=== PATIENT | female | born 1995 | race African-American/Black ===

== ENCOUNTER 2017-01-17 10:38 | Emergency (ER) | payer OTHER ==
[2017-01-17 10:47] VITALS: BP 151/79; PULSE 93; TEMP 99.7; BMI 32.3
[2017-01-17] MEDS ORDERED: IBUPROFEN 600 MG TABLET (FP) PO ONE ×2 (11:48→12:01)
[2017-01-17] MEDS ORDERED: DEXAMETHASONE LIQUID 0.5 MG/5 ML 240 ML BULK BOTTLE PO ONE (11:49)
--- NOTE | 2017-01-17 11:52 | PDOC ---
History of Present Illness - General Chief Complaint: Sore Throat Stated Complaint: SORE THROAT Time Seen by Provider: 01/17/17 11:00 - History of Present Illness Initial Comments: 01/17/17 11:49 CHIEF COMPLAINT: sore throat HISTORY OF PRESENT ILLNESS: 21 yo F with no PMH presents to ED with sore throat since last night. Patient states she is having trouble swallowing but denies any difficult breathing or speaking. She states she used some "throat spray from [facility] and thelma tea" last night without relief and woke up this morning with worsening swelling of the throat. No recent travel or sick contacts. PAST MEDICAL HISTORY: Denies past medical history FAMILY HISTORY: Denies SOCIAL HISTORY: Denies tobacco, alcohol, illicit drug use. SURGICAL HISTORY: Denies ALLERGIES: No known drug allergies REVIEW OF SYSTEMS General/Constitutional: Denies fever or chills. Denies weakness, weight change. HEENT: Sore throat since yesterday. Denies change in vision. Denies ear pain or discharge. Cardiovascular: Denies chest pain or shortness of breath. Respiratory: Denies cough, wheezing, or hemoptysis. Gastrointestinal: Denies nausea, vomiting, diarrhea or constipation. Denies rectal bleeding. Genitourinary: Denies dysuria, frequency, or change in urination. Musculoskeletal: Denies joint or muscle swelling or pain. Denies neck or back pain. Skin and breasts: Denies rash or easy bruising. PHYSICAL EXAM General Appearance: Well-appearing, appropriately dressed. No apparent distress , no intoxication. HEENT: Tonsils 3+ with exudate b/l. EOMI, PERRLA, normal ENT inspection. No conjunctival pallor. No photophobia, scleral icterus. Neck: Supple. Trachea midline. No tenderness, rigidity, carotid bruit, stridor , lymphadenopathy, or thyromegaly. Respiratory/Chest: Lungs CTAB. Cardiovascular: RRR. S1, S2. Musculoskeletal/Extremities: Normal inspection. FROM of all extremities, normal capillary refill. Pelvis Stable. No CVA tenderness. No tenderness to extremities, pedal edema, swelling, erythema or deformity. Integumentary: Appropriate color, dry, warm. No cyanosis, erythema, jaundice or rash Neurologic: [employer] II-XII intact. Fully oriented, alert. Appropriate mood/affect. Motor strength 5/5. No appreciable EOM palsy, facial droop or sensory deficit. Past History - Past Medical History Allergies/Adverse Reactions: Allergies Allergy/AdvReac Type Severity Reaction Status Date / Time No Known Allergies Allergy Verified 01/17/17 10:44 Home Medications: Ambulatory Orders NK [No Known Home Medication] 01/17/17 Asthma: No Cancer: No Cardiac Disorders: No Diabetes: No HTN: Yes (preeclamptic 02/07/16) Seizures: No Thyroid Disease: No - Psycho/Social/Smoking Cessation Hx Anxiety: No Suicidal Ideation: No Smoking History: Never smoked Have you smoked in the past 12 months: No Information on smoking cessation initiated: No Hx Alcohol Use: No Drug/Substance Use Hx: No Substance Use Type: None Hx Substance Use Treatment: No *Physical Exam - Vital Signs Last Vital Signs Temp Pulse Resp BP Pulse Ox 99.7 F H 93 H 18 151/79 100 01/17/17 10:45 01/17/17 10:45 01/17/17 10:45 01/17/17 10:45 01/17/17 10:45 Medical Decision Making - Medical Decision Making 01/17/17 11:51 21 yo F with no PMH presents to ED with sore throat since last night. Clinical presentation consistent with strep pharyngitis. Given extent of swelling to tonsils b/l, will give decadron. Rapid strep/ culture sent Strep positive. Bicillin 1.2 mil units IM Advised patient to f/u with primary care doctor if symptoms persist and of signs and symptoms for return to ER. Patient verbalized understanding and agrees to plan. *DC/Admit/Observation/Transfer Diagnosis at time of Disposition: Strep pharyngitis - Discharge Dispostion Disposition: HOME Condition at time of disposition: Stable Admit: No - Patient Instructions Printed Discharge Instructions: DI for Strep Throat Additional Instructions: Please follow up with your primary care doctor if symptoms do not improve in 24 hours. If you experience any shortness of breath, difficulty breathing, speaking, or swallowing, or any new or worsening symptoms, please return to the ER immediately. - Post Discharge Activity Work/School Note: Back to Work
[2017-01-17] MEDS ORDERED: DEXAMETHASONE SOD PHOSPHATE 10 MG/1 ML VIAL ONE (12:01)
[2017-01-17] MEDS ORDERED: PENICILLIN G BENZATHINE 1,200,000 UNIT/2 ML PFS IM ONE (12:08)
[2017-01-17] MEDS ORDERED: PENICILLIN G BENZATHINE 2,400,000 UNIT/4 ML PFS ONE (12:18)
== END 2017-01-17 12:48 | disposition home or self-care (01) ==
LOC: JERFT 10:38
DX: J02.0 Streptococcal pharyngitis (principal); B95.0 Streptococcus, group A, as the cause of diseases classified elsewhere
CPT/HCPCS: 87070; 87430; 96372; 99281-25

== ENCOUNTER 2017-05-11 16:06 | Emergency (ER) | payer OTHER ==
[2017-05-11 16:16] VITALS: BP 130/77; PULSE 84; TEMP 98.9; BMI 32.5
--- NOTE | 2017-05-11 17:16 | PDOC ---
History of Present Illness - General Chief Complaint: Sore Throat Stated Complaint: SORE THROAT Time Seen by Provider: 05/11/17 16:20 History Source: Patient Exam Limitations: No Limitations - History of Present Illness Initial Comments: 05/11/17 17:12 Patient is a 21-year-old female, presents with throat pain that started this a.m. history of strep with same pain. Patient states she felt a lesion to right tonsil this morning. Patient denies any fever, mild dysphagia, no respiratory difficulty, denies any chest pain or shortness of breath. Afebrile, tolerating fluids. Past Medical History: Denies. Allergies: No known allergies Medications: None Family History: Non-contributory Social History: Denies smoking, alcohol use, or IVDU Review of Systems GENERAL/CONSTITUTIONAL: No fever or chills. No weakness. No weight change. HEAD, EYES, EARS, NOSE AND THROAT: No change in vision. No ear pain or discharge. Sore throat and mild dysphagia. CARDIOVASCULAR: No chest pain or shortness of breath. RESPIRATORY: No cough, wheezing, or hemoptysis. GASTROINTESTINAL: No nausea, vomiting, diarrhea or constipation. No rectal bleeding. GENITOURINARY: No dysuria, frequency, or change in urination. MUSCULOSKELETAL: No joint or muscle swelling or pain. No neck or back pain. SKIN : No rash or easy bruising. NEUROLOGIC: No headache, vertigo, loss of consciousness, or loss of sensation. PSYCHIATRIC: No depression or anxiety. ENDOCRINE: No increased thirst. No abnormal weight change. HEMATOLOGIC/LYMPHATIC: No anemia, easy bleeding, or history of blood clots. No lymphadenopathy ALLERGIC/IMMUNOLOGIC: No hives or skin allergy. No latex allergy. Physical Exam: GENERAL: The patient is awake, alert, and fully oriented, in no acute distress. EYES: Pupils equal, round and reactive to light, extraocular movements intact, sclera anicteric, conjunctiva clear. ENT: Ears normal, nares patent, oropharynx erythematous without exudates, there is no soft palate fullness, there is an abscess ulcer noted above right tonsil. Not umbilicated. No fluctuance. No edema. Moist mucous membranes. No uvula deviation. NECK: Normal range of motion, supple without lymphadenopathy, JVD, or masses. LUNGS: Breath sounds equal, clear to auscultation bilaterally. No wheezes, and no crackles. HEART: Regular rate and rhythm, normal S1 and S2 without murmur, rub or gallop. ABDOMEN: Soft, nontender, normoactive bowel sounds. No guarding, no rebound. No masses. No bruising or abrasions MUSCULOSKELETAL: Normal range of motion, no edema. No clubbing or cyanosis. No cords, erythema, or tenderness. No CVA Tenderness with fist. NEUROLOGICAL: Cranial nerves II through XII grossly intact. Normal speech, normal gait. SKIN: Warm, Dry, normal turgor, no rashes or lesions noted. Past History - Past Medical History Allergies/Adverse Reactions: Allergies Allergy/AdvReac Type Severity Reaction Status Date / Time No Known Allergies Allergy Verified 05/11/17 16:13 Home Medications: Ambulatory Orders Amoxicillin - [Amoxicillin 500mg Capsule -] 500 mg PO BID #20 capsule 05/11/17 Asthma: No Cancer: No Cardiac Disorders: No Diabetes: No HTN: Yes (preeclamptic 02/07/16) Seizures: No Thyroid Disease: No - Psycho/Social/Smoking Cessation Hx Anxiety: No Suicidal Ideation: No Smoking History: Never smoked Have you smoked in the past 12 months: No Information on smoking cessation initiated: No Hx Alcohol Use: No Drug/Substance Use Hx: No Substance Use Type: None Hx Substance Use Treatment: No *Physical Exam - Vital Signs Last Vital Signs Temp Pulse Resp BP Pulse Ox 98.9 F 84 18 130/77 98 05/11/17 16:13 05/11/17 16:13 05/11/17 16:13 05/11/17 16:13 05/11/17 16:13 Medical Decision Making - Medical Decision Making 05/11/17 17:16 A/P: Patient here for evaluation of sore throat, aphthous ulcer above right tonsil. Most likely viral in nature however will send rapid strep there is no clinical evidence of peritonsillar abscess, no uvula deviation, no soft palate fullness. 05/11/17 19:12 Pt with positive strep pharyngitis. We'll DC patient home on amoxicillin, warm salt water gargles, follow-up with ENT I discussed the physical exam findings, ancillary test results and final diagnoses with the patient. I answered all of the patient's questions. The patient was satisfied with the care received and felt comfortable with the discharge plan and treatment plan. The patient will call to arrange follow-up and will return to the Emergency Department with any new, persistent or worsening symptoms. *DC/Admit/Observation/Transfer Diagnosis at time of Disposition: Strep pharyngitis - Discharge Dispostion Disposition: HOME Condition at time of disposition: Good Admit: No - Prescriptions Prescriptions: Amoxicillin - [Amoxicillin 500mg Capsule -] 500 mg PO BID #20 capsule - Referrals Referrals: Willian Melo MD [Staff Physician] - - Patient Instructions Printed Discharge Instructions: DI for Strep Throat Additional Instructions: 1. Increase fluid. 2. Pedialyte or Gatorade. 3. Please change toothbrush within 3 days of starting antibiotics. 4. Warm saltwater gargles. 5. Please follow up with PMD in 3 days if symptoms not resolving. 6. Please return to the ER unable to drink or eat, increased fever or other concerns - Post Discharge Activity Work/School Note: Back to Work
== END 2017-05-11 19:19 | disposition home or self-care (01) ==
LOC: JERFT 16:06
DX: J02.0 Streptococcal pharyngitis (principal); B95.0 Streptococcus, group A, as the cause of diseases classified elsewhere
CPT/HCPCS: 87070; 87430; 99281-25

== ENCOUNTER 2018-10-08 16:14 | Emergency (ER) | payer OTHER ==
[2018-10-08 16:31] VITALS: BP 118/65; PULSE 63; TEMP 98.6; BMI 24.2
--- NOTE | 2018-10-08 16:40 | PDOC ---
Attending Attestation - HPI HPI: 10/08/18 17:26 The patient is a 23 year old female with a past medical history of PCOS and diabetes here today for evaluation of shortness of breath and loss of appetite. Patient reports that her shortness of breath is worse when trying to stand up and notes associated heart palpitations. The patient reports that she went to [facility] 3 days ago for the same symptoms and was told that everything was normal. Patient denies headache, lightheadedness. Denies fever, chills. Denies chest pain. Denies nausea, vomiting, diarrhea, abdominal pain. Denies lower extremity edema. Allergies: NKA PCP: none - Physicial Exam PE: 10/08/18 17:26 Constitutional: Awake, alert, oriented. No acute distress. Head: Normocephalic. Atraumatic Eyes: PERRL. EOMI. Conjunctivae are not pale. ENT: Mucous membranes are moist and intact. Posterior pharynx without exudates or erythema. Uvula midline. Neck: Supple. Full ROM. No lymphadenopathy. Cardiovascular: Regular rate. Regular rhythm. S1, S2 regular. Distal pulses are 2+ and symmetric. Pulmonary/Chest: No evidence of respiratory distress. Clear to auscultation bilaterally No wheezing, rales or rhonchi. Abdominal: Soft and non-distended. There is no tenderness. No rebound, guarding or rigidity. No organomegaly. No palpable masses. Good bowel sounds. Back: No CVA tenderness. Musculoskeletal: No edema. No cyanosis. No clubbing. Full range of motion in all extremities. No calf tenderness. Radial/pedal pulses are intact and 2+ bilaterally Skin: Skin is warm and dry. No petechiae. No purpura. Neurological: Alert and oriented to person, place, and time. Cranial nerves II -XII are grossly intact. Normal speech. Strength is grossly symmetric. No sensory deficits. Psychiatric: Good eye contact. Normal interaction, affect and behavior. - Medical Decision Making 10/08/18 17:26 Documentation prepared by HAYDEE Newman, acting as medical technicians for Shobha Lewis DO. <Evaristo Jones - Last Filed: 10/08/18 17:26> - Resident Resident Name: Janeth Irving - ED Attending Attestation I have performed the following: I have examined & evaluated the patient, The case was reviewed & discussed with the resident, I agree w/resident's findings & plan, Exceptions are as noted - Medical Decision Making 10/08/18 16:40 I, Dr. Shobha Lewis, DO, attest that this document has been prepared under my direction and personally reviewed by me in its entirety. I further attest, that it accurately reflects all work, treatment, procedures and medical decision -making performed by me. 10/08/18 17:23 a/p: 23yo female c/o palpitations and sob -no cp -no pleuritic component to sob -no fevers/sore throat -no cough -seen at [facility] 3 days ago and was given meds for her anxiety as the cause of her sob -denies anxiety today -pt is nontoxic in appearance -will send labs, hx of predm and states urinating freq -will obtain xray -will monitor and reassess 10/08/18 18:18 labs reviewed dimer negative 10/08/18 18:18 tsh normal 10/08/18 18:36 cxr clear 10/08/18 18:39 pt stable for dc to home <Shobha Lewis - Last Filed: 10/08/18 18:39> Heart Score/ECG Review - ECG Intrepretation Comment:: 10/08/18 17:24 sinus at 62, nl axis, nl interal, t wave inversions V1-2, no acute st changes <Shobha Lewis - Last Filed: 10/08/18 18:39>
--- NOTE | 2018-10-08 16:56 | PDOC ---
History of Present Illness - General Chief Complaint: Shortness of Breath Stated Complaint: SHORTNESS OF BREATH,FATIGUE Time Seen by Provider: 10/08/18 16:34 History Source: Patient Exam Limitations: No Limitations - History of Present Illness Initial Comments: 10/08/18 16:51 23 year old with hx of PCOS who presents with 2 days of shortness of breath on exertion, fatigue and palpitations when standing up. She reports some rib pain with deep breaths. She was evaluated at [facility] two days ago without significant findings but has continued to have similar symptoms. The patient denies taking control pills, any recent travel, long flights, long car rides. Denies abdominal pain, nausea, vomiting, diarrhea, constipation, dysuria , hematuria. She denies recent illness, fever, cough, runny nose congestion. She has no other complaints at bedside. Past History - Past Medical History Allergies/Adverse Reactions: Allergies Allergy/AdvReac Type Severity Reaction Status Date / Time No Known Allergies Allergy Verified 10/08/18 16:27 Home Medications: Ambulatory Orders Amoxicillin - [Amoxicillin 500mg Capsule -] 500 mg PO BID #20 capsule 07/18/17 Asthma: No Cancer: No Cardiac Disorders: No COPD: No Diabetes: No HTN: Yes (preeclamptic 02/07/16) Seizures: No Thyroid Disease: No - Immunization History Immunization Up to Date: Yes - Suicide/Smoking/Psychosocial Hx Smoking History: Never smoked Have you smoked in the past 12 months: No Hx Alcohol Use: No Drug/Substance Use Hx: No Substance Use Type: None Hx Substance Use Treatment: No Review of Systems - Review of Systems Able to Perform ROS?: Yes Is the patient limited Occitan proficient: No Constitutional: No: Chills, Diaphoresis, Fever HEENTM: No: Blurred Vision, Tinnitus Respiratory: Yes: Shortness of Breath. No: Cough, Orthopnea Cardiac (ROS): Yes: Palpitations. No: Chest Pain, Lightheadedness ABD/GI: No: Constipated, Diarrhea, Nausea, Vomiting : No: Burning, Dysuria, Hematuria Musculoskeletal: No: Muscle Pain, Muscle Weakness Neurological: No: Headache, Numbness, Tingling *Physical Exam - Vital Signs Last Vital Signs Temp Pulse Resp BP Pulse Ox 98.6 F 63 16 118/65 100 10/08/18 16:27 10/08/18 16:27 10/08/18 16:27 10/08/18 16:27 10/08/18 16:27 - Physical Exam Comments: 10/08/18 17:21 GENERAL: Awake, alert, and fully oriented, in no acute distress HEAD: No signs of trauma, normocephalic, atraumatic EYES: EOMI, sclera anicteric, conjunctiva clear ENT: oropharynx clear without exudates. Moist mucosa NECK: Normal ROM, supple LUNGS: No distress, speaks full sentences, clear to auscultation bilaterally HEART: Regular rate and rhythm, normal S1 and S2, no murmurs, rubs or gallops, peripheral pulses normal and equal bilaterally. ABDOMEN: Soft, nontender, normoactive bowel sounds. No guarding, no rebound. No masses EXTREMITIES : Normal inspection, Normal range of motion, no edema. No clubbing or cyanosis. NEUROLOGICAL: Cranial nerves II through XII grossly intact. Normal speech, no focal sensorimotor deficits SKIN: Warm, Dry, normal turgor, no rashes or lesions noted Moderate Sedation - Procedure Monitoring Vital Signs: Procedure Monitoring Vital Signs Temperature 98.6 F 10/08/18 16:27 Pulse Rate 63 10/08/18 16:27 Respiratory Rate 16 10/08/18 16:27 Blood Pressure 118/65 10/08/18 16:27 O2 Sat by Pulse Oximetry (%) 100 10/08/18 16:27 ED Treatment Course - LABORATORY CBC & Chemistry Diagram: 10/08/18 17:05 10/08/18 17:05 Medical Decision Making - Medical Decision Making 10/08/18 17:18 23 year old with hx of PCOS who presents with 2 days of shortness of breath on exertion, fatigue and palpitations when standing up. She reports some rib pain with deep breaths. She was evaluated at [facility] two days ago without significant findings but has continued to have similar symptoms. ED Course: consider arrythmia vs hyperthyroidism vs electrolyte derangement vs preg less likely PE, however possible and will order d-dimer cbc,cmp, ekg, tsh, ddimer, ua, upreg 10/08/18 18:04 labwork unremarkable. *DC/Admit/Observation/Transfer Diagnosis at time of Disposition: Exertional dyspnea - Discharge Dispostion Disposition: HOME Condition at time of disposition: Stable Decision to Admit order: No - Referrals - Patient Instructions Printed Discharge Instructions: DI for Shortness of Breath Additional Instructions: You were seen in the ED for complaints of shortness of breath on exertion. In the ED you were evaluated with labwork and imaging. Your results were unremarkable. There does not appear to be an acute need for immediate hospitalization. You are advised to follow up with your Primary Care Physician within 1 week. Return to the ED immediately if you experience worsening shortness of breath, chest pain, lightheadedness, loss of consciousness, nausea, vomiting, or diarrhea. - Post Discharge Activity
[2018-10-08 17:13] LABS: BASO % 1.9 % (0-2.0); EOS % 3.2 % (0-4.5); HEMATOCRIT 37.4 % (32.4-45.2); HEMOGLOBIN 11.9 GM/dL (10.7-15.3); LYMPH % 31.4 % (8-40); MCH 23.9 pg (25.7-33.7); MCHC 31.9 g/dl (32.0-36.0); MEAN CELL VOLUME 74.7 fl (80-96); MEAN PLT VOLUME 9.9 fl (7.5-11.1); MONO % 8.1 % (3.8-10.2); NEUT % 55.4 % (42.8-82.8); PLATELET COUNT 255 K/MM3 (134-434); RDW 16.8 % (11.6-15.6)
[2018-10-08 17:23] LABS: URINE APPEARANCE SLCLOUDY; URINE BILIRUBIN NEGATIVE (<2.0 mg/dL); URINE COLOR YELLOW; URINE GLUCOSE (UA) NEGATIVE (NEGATIVE); URINE KETONE NEGATIVE (NEGATIVE); URINE LEUK ESTERASE NEGATIVE (NEGATIVE); URINE NITRITE NEGATIVE (NEGATIVE); URINE PROTEIN NEGATIVE (NEGATIVE); URINE UROBILINOGEN NEGATIVE mg/dL (0.2-1.0)
[2018-10-08 17:25] LABS: HCG,QUALITATIVE URINE Negative
[2018-10-08 17:59] LABS: ALBUMIN 3.9 g/dl (3.4-5.0); ALK PHOS 82 U/L (45-117); ANION GAP 6 MMOL/L (8-16); BILIRUBIN,TOTAL 0.3 mg/dL (0.2-1); BLOOD UREA NITROGEN 11 mg/dL (7-18); CHLORIDE 104 mmol/L (98-107); CO2 29 mmol/L (21-32); CREATININE 0.9 mg/dL (0.55-1.3); GLUCOSE,RANDOM 86 mg/dL (74-106); POTASSIUM 3.8 mmol/L (3.5-5.1); SGOT/AST 16 U/L (15-37); SGPT/ALT 22 U/L (13-61); SODIUM 138 mmol/L (136-145); TOT PROT 7.7 g/dl (6.4-8.2)
--- NOTE | 2018-10-09 19:07 | EKG ---
Test Reason : Blood Pressure : / mmHG Vent. Rate : 062 BPM Atrial Rate : 062 BPM P-R Int : 164 ms QRS Dur : 090 ms QT Int : 408 ms P-R-T Axes : 027 049 030 degrees QTc Int : 414 ms NORMAL SINUS RHYTHM WITH SINUS ARRHYTHMIA CANNOT RULE OUT ANTERIOR INFARCT , AGE UNDETERMINED ABNORMAL ECG WHEN COMPARED WITH ECG OF 23-APR-2016 15:23, NO SIGNIFICANT CHANGE WAS FOUND Confirmed by ASHISH SIGALA MD ([id number]) on 10/09/2018 7:06:52 PM Referred By: Confirmed By:ASHISH SIGALA MD
== END 2018-10-08 18:47 | disposition home or self-care (01) ==
LOC: JER 16:14
DX: R06.89 Other abnormalities of breathing (principal); F41.9 Anxiety disorder, unspecified
CPT/HCPCS: 36415; 71046-TC-FY; 80053; 81003; 84443; 84703; 85025; 85379; 87086; 93005; 93010; 99283-25

== ENCOUNTER 2019-07-10 16:20 | Inpatient (IN) | payer OTHER ==
[2019-07-10 18:27] LABS: BASO % 0.2 % (0-2.0); EOS % 0.9 % (0-4.5); LYMPH % 14.5 % (8-40); MCH 25.3 pg (25.7-33.7); MCHC 31.7 g/dl (32.0-36.0); MEAN CELL VOLUME 79.8 fl (80-96); MEAN PLT VOLUME 10.3 fl (7.5-11.1); MONO % 12.3 % (3.8-10.2); NEUT % 72.1 % (42.8-82.8); PLATELET COUNT 150 K/MM3 (134-434); RBC 5.14 M/mm3 (3.60-5.2); RDW 15.2 % (11.6-15.6); WHITE BLOOD COUNT 10.7 K/mm3 (4.0-10.0)
[2019-07-10 18:36] LABS: PROTHROMBIN TIME (PATIENT) 11.8 SEC (9.7-13.0)
[2019-07-10 18:40] VITALS: BMI 39.5
[2019-07-10 18:53] LABS: BLOOD UREA NITROGEN 8.7 mg/dL (7-18); CALCIUM 9.1 mg/dL (8.5-10.1); CREATININE 0.8 mg/dL (0.55-1.3)
--- NOTE | 2019-07-10 19:24 | HP ---
Past Medical History - Primary Care Physician PCP:: Mallory Zelaya - Admission Chief Complaint: Previous Section. Twins Di/Di at 36.1 week. Gestational DM A2 History of Present Illness: 23 yo EDC 08/06/19 EGA 36.1 weeks twins with gestational DM A2 uncontrolled who came in for delivery as per MFM No BHATIA, abd pain, rom or bleeding Limitations to Obtaining History: No Limitations - Past Medical History ...: 3 ...Para: 1 ...Term: 1 ...: 0 ...Spon : 0 ...Induced : 1 ...Multiple Gestation: 0 ...LMP: 10/30/18 ... Weeks Gestation by Dates: 36.1 ...EDC by Dates: 08/06/19 - Past Surgical History Past Surgical History: Yes: Hx Myomectomy: No Hx Transabdominal Cerclage: No - Smoking History Smoking history: Never smoked Have you smoked in the past 12 months: No - Alcohol/Substance Use Hx Alcohol Use: No History of Substance Use: reports: None - Social History Do you think of yourself as: Straight/Heterosexual History of Recent Travel: No Home Medications - Allergies Allergies/Adverse Reactions: Allergies Allergy/AdvReac Type Severity Reaction Status Date / Time No Known Allergies Allergy Verified 07/10/19 18:45 - Home Medications Home Medications: Ambulatory Orders Aspirin [Lo-Dose Aspirin EC] 81 mg PO DAILY 06/29/19 Vits96/Iron Fum/Folic [ Tablet] 1 each PO DAILY 06/29/19 Insulin NPH [Novolin N Vial -] 22 units SQ AM 07/10/19 Review of Systems - Review of Systems Constitutional: reports: No Symptoms Eyes: reports: No Symptoms HENT: reports: No Symptoms Neck: reports: No Symptoms Cardiovascular: reports: No Symptoms Respiratory: reports: No Symptoms Gastrointestinal: reports: No Symptoms Genitourinary: reports: No Symptoms Breasts: reports: No Symptoms Reported Musculoskeletal: reports: No Symptoms Integumentary: reports: No Symptoms Neurological: reports: No Symptoms Endocrine: reports: No Symptoms Hematology/Lymphatic: reports: No Symptoms Psychiatric: reports: No Symptoms Physical Exam - Maternity Vital Signs: Vital Signs Temperature 99.2 F 07/10/19 17:00 Pulse Rate 112 H 07/10/19 17:00 Respiratory Rate 20 07/10/19 17:00 Blood Pressure 134/81 07/10/19 17:00 O2 Sat by Pulse Oximetry (%) - Labs Lab Results: CBC, BMP 07/10/19 18:00 07/10/19 18:00 Hemorrhage Risk Assessment - Risk Factors Medium Risk Factors: Yes: Multiple gestation Risk Score: 1 Risk Level: Medium Risk Problem List - Problems (1) Twin gestation with third Code(s): O30.009 - TWIN , UNSP NUM PLCNTA & AMNIO SACS, UNSP TRIMESTER (2) Gestational diabetes requiring insulin Code(s): O24.414 - GESTATIONAL DIABETES IN , INSULIN CONTROLLED (3) 36 weeks gestation of Code(s): Z3A.36 - 36 WEEKS GESTATION OF Assessment/Plan Twin gestational di/di iup at 36.1 week gestational diabetes - insulin uncontrolled Cat 1 GBS Plan Section
[2019-07-10] MEDS ORDERED: CITRIC ACID/SODIUM CITRATE 30 ML UNIT-DOSE CUP PO ONE (19:26)
[2019-07-10] MEDS ORDERED: WITCH HAZEL 50% (TUCKS) 40 PAD/JAR PAD TP PRN (19:27)
[2019-07-10] MEDS ORDERED: BENZOCAINE 20% 57 GM BOTTLE TP PRN (19:27)
[2019-07-10] MEDS ORDERED: BENZOCAINE 28 GM HEMORRHOIDAL OINTMENT PR PRN (19:27)
[2019-07-10] MEDS ORDERED: METHYLERGONOVINE MALEATE 0.2 MG/1 ML AMP IM PRN (19:27)
[2019-07-10] MEDS ORDERED: diphenhydrAMINE HCL 25 MG CAPSULE (FP) PO PRN (19:27)
[2019-07-10] MEDS ORDERED: ELECTROLYTE-148 SOLN 1,000 ML IV SCH (19:30)
[2019-07-10] MEDS ORDERED: morphine SULFATE/PF 0.5 MG/ML (2cc Syringe - QUVA) ONE (19:54)
[2019-07-10] MEDS ORDERED: KETOROLAC TROMETHAMINE 30 MG/1 ML VIAL ONE (20:14)
[2019-07-10] MEDS ORDERED: OXYTOCIN 10 UNITS/ML VIAL ONE (20:14)
[2019-07-10] MEDS ORDERED: ceFAZolin SODIUM 1 GM VIAL ONE (20:14)
--- NOTE | 2019-07-10 21:03 | OP ---
Operative Note - Note: Operative Date: 07/10/19 Pre-Operative Diagnosis: Twin gestation. Previous section. IUP at 36 weeks. Gestational Diabetes uncontrolled Operation: Repeat Section Findings: Live female Twin A OP nuchal cord x 1 live male infant Twin B OP Post-Operative Diagnosis: Same as Pre-op Surgeon: Mallory Zelaya Clipper Machine: Reza Beck Anesthesia: Spinal Estimated Blood Loss (mls): 700 Operative Report Dictated: Yes
--- NOTE | 2019-07-10 21:30 | OP ---
DATE OF OPERATION: 07/10/2019 PREOPERATIVE DIAGNOSES: Twin gestation, previous section, intrauterine at 36 weeks, and gestational diabetes, uncontrolled. OPERATION: Repeat section. POSTOPERATIVE DIAGNOSES: Twin gestation, previous section, intrauterine at 36 weeks, and gestational diabetes, uncontrolled. Live female infant Twin A, occiput posterior position, nuchal cord x1 reduced. Twin B is a live male infant, occiput posterior position. SURGEON: Mallory Zelaya MD MACHINE WOODWORKING SANDER: VIELKA Garner ANESTHESIA: Spinal. ANESTHESIOLOGIST: Kali Nguyễn MD ESTIMATED BLOOD LOSS: 700 mL. PROCEDURE: Patient was taken to the operating room, placed in supine position, prepped and draped in usual sterile fashion. A timeout was performed in accordance with hospital regulations. Pfannenstiel skin incision was made with a scalpel. Cautery was then used to go through layers of abdominal wall to the level of the fascia. Fascia was cut in the midline. Cautery was then used to open the fascia in smiling fashion. Kaushal was then used to bluntly and sharply dissect the rectus muscle off the fascia. Muscle split in the midline. Peritoneal cavity was then entered and carried upward and downward. Bladder retractor was then placed. Vesicouterine reflection was then entered. Bladder was bluntly dissected out of the operative field. Scalpel was then used to make a low transverse uterine incision. Incision was carried upwards using bandage scissors. A live female infant, Twin A, was delivered in OP position. Nose and mouth suction performed. Shoulders were delivered without difficulty. Cord was clamped and cut. Infant was handed to perinatal social worker. Cord pH obtained. Twin B was also delivered in OP position. Shoulders were delivered without difficulty. Cord was clamped and cut, and the live male was handed to perinatal social worker. Cord pH was also done. Cord blood was obtained. Placentas were manually extracted from the uterus and submitted to pathology. Uterus exteriorized and cleaned with clean laparotomy pads. Uterine incision then closed using 0 Biosyn suture, first layer continuous and locking, second layer imbricating the first layer. Hemostasis was achieved. Uterus interiorized. Tubes and ovaries were noted to be normal. Hemostasis was achieved. Abdominal sweep done. Peritoneal cavity was then closed using 0 Biosyn suture. Muscles approximated in the midline using 0 Biosyn suture. Fascia was then closed using 0 Vicryl suture in 2 parts. Skin was then closed using 3-0 Vicryl in subcuticular fashion. Wound was washed and dressed. Patient had tolerated the procedure well and was taken to recovery room in stable condition. Lauri OATES/[id number]
[2019-07-10] MEDS ORDERED: morphine SULFATE/PF 0.5 MG/ML (2cc Syringe - QUVA) SPIN ONE (21:52)
[2019-07-10] MEDS ORDERED: ONDANSETRON 4 MG/2 ML VIAL IVPUSH PRN ×2 (21:52)
[2019-07-10] MEDS ORDERED: ACETAMINOPHEN 1000 MG/100 ML VIAL (NON FORMULARY) IVPB ONE (21:55)
[2019-07-10] MEDS: OXYTOCIN 20 UNITS in 0.9% NS 20 UNIT/1,000 ML INFUS.BAG IV SCH (22:00)
[2019-07-10] MEDS ORDERED: OXYTOCIN 20 UNITS in 0.9% NS 20 UNIT/1,000 ML INFUS.BAG IV ONE (22:25)
[2019-07-10] MEDS ORDERED: ACETAMINOPHEN INJECTION 100 ML IVPB ONE (22:41)
[2019-07-11] MEDS: IBUPROFEN 800 MG/8 ML IJ IVPB PRN ×2 (03:16→11:26)
[2019-07-11] MEDS: OXYTOCIN 20 UNITS in 0.9% NS 20 UNIT/1,000 ML INFUS.BAG IV SCH ×2 (05:55→15:05)
[2019-07-11 10:28] LABS: MCH 25.6 pg (25.7-33.7); MCHC 32.5 g/dl (32.0-36.0); MEAN CELL VOLUME 78.6 fl (80-96); MEAN PLT VOLUME 10.4 fl (7.5-11.1); PLATELET COUNT 138 K/MM3 (134-434); RBC 4.71 M/mm3 (3.60-5.2); RDW 15.3 % (11.6-15.6); WHITE BLOOD COUNT 11.1 K/mm3 (4.0-10.0)
--- NOTE | 2019-07-11 10:43 | PN ---
Post Progress Note - Subjective Subjective: 23 yo Para 2 status post twin delivery by , seen and evaluated. Doing well. Post Day: 1 Type of Delivery: Repeat C/S Vital Signs: Vital Signs Temperature 98.0 F 07/11/19 06:00 Pulse Rate 78 07/11/19 06:00 Respiratory Rate 18 07/11/19 08:00 Blood Pressure 107/70 07/11/19 06:00 O2 Sat by Pulse Oximetry (%) 100 07/10/19 22:15 Breast Exam: Yes: Soft Uterus: Yes: Fundus @ umbilicus Incision: Yes: Dressing dry and intact Abdomen/GI: Yes: Abdomen soft, Tolerating PO Lochia: Yes: Rubra Lochia, amount: Small Extremities: Yes: Calves non-tender Perineum: Yes: Intact Activity: Other (She's lying in bed) - Labs Labs: CBC WBC 11.1 K/mm3 (4.0-10.0) H 07/11/19 09:59 RBC 4.71 M/mm3 (3.60-5.2) 07/11/19 09:59 Hgb 12.0 GM/dL (10.7-15.3) 07/11/19 09:59 Hct 37.0 % (32.4-45.2) 07/11/19 09:59 MCV 78.6 fl (80-96) L 07/11/19 09:59 MCH 25.6 pg (25.7-33.7) L 07/11/19 09:59 MCHC 32.5 g/dl (32.0-36.0) 07/11/19 09:59 RDW 15.3 % (11.6-15.6) 07/11/19 09:59 Plt Count 138 K/MM3 (134-434) 07/11/19 09:59 MPV 10.4 fl (7.5-11.1) 07/11/19 09:59 Absolute Neuts (auto) 7.7 K/mm3 (1.5-8.0) 07/10/19 18:00 Neutrophils % 72.1 % (42.8-82.8) D 07/10/19 18:00 Lymphocytes % 14.5 % (8-40) D 07/10/19 18:00 Monocytes % 12.3 % (3.8-10.2) H 07/10/19 18:00 Eosinophils % 0.9 % (0-4.5) 07/10/19 18:00 Basophils % 0.2 % (0-2.0) 07/10/19 18:00 Nucleated RBC % 0 % (0-0) 07/10/19 18:00 Problem List - Problems (1) Status post repeat low transverse section Problems reviewed: Yes Code(s): Z98.891 - HISTORY OF UTERINE SCAR FROM PREVIOUS SURGERY Assessment/Plan Status post delivery of twins Ambulation Analgesia as needed Regular diet D/C mccrary catheter this pm Continue post op care
--- NOTE | 2019-07-11 10:52 | PN ---
Progress Note (short form) - Note Progress Note: Anesthesia POD#1 S/P under Spinal Anesthesia and DM VSS,no N/V,bearable pain,legs are strong. Magdalena Gutierrez MD.
[2019-07-11] MEDS: ACETAMINOPHEN 325 MG TABLET (FP) PO PRN (15:30)
[2019-07-11] MEDS: IBUPROFEN 600 MG TABLET (FP) PO PRN (18:08)
[2019-07-11] MEDS: SIMETHICONE 80 MG TAB.CHEW (FP) PO PRN (18:12)
[2019-07-11] MEDS ORDERED: oxyCODONE HCL 5 MG TABLET PO PRN (19:27)
[2019-07-11] MEDS ORDERED: BISACODYL 10 MG SUPP.RECT PR PRN (19:27)
[2019-07-11] MEDS ORDERED: HYDROmorphone HCL 2 MG TABLET ONE (20:39)
--- NOTE | 2019-07-12 00:13 | CONSULT ---
Consult Consult Specialty:: Endocrine Referred by:: dr.suzanne hawley Reason for Consultation:: gestational dm - History of Present Illness Chief Complaint: has borderline blood sugars History of Present Illness: 23 y old female,sp twins with gestational DM A2 uncontrolled who came in for delivery had elevated bgms fasting in past poor compliant with diet and diabetic follow up.she denies blurred vision,nausea or vomiting. - Past Surgical History Past Surgical History: Yes: - Alcohol/Substance Use Hx Alcohol Use: No History of Substance Use: reports: None - Smoking History Smoking history: Never smoked Have you smoked in the past 12 months: No - Social History History of Recent Travel: No Home Medications - Allergies Allergies/Adverse Reactions: Allergies Allergy/AdvReac Type Severity Reaction Status Date / Time No Known Allergies Allergy Verified 07/10/19 18:45 - Home Medications Home Medications: Ambulatory Orders Aspirin [Lo-Dose Aspirin EC] 81 mg PO DAILY 06/29/19 Vits96/Iron Fum/Folic [ Tablet] 1 each PO DAILY 06/29/19 Insulin NPH [Novolin N Vial -] 22 units SQ AM 07/10/19 Review of Systems - Review of Systems Constitutional: reports: No Symptoms Eyes: reports: No Symptoms HENT: reports: No Symptoms Neck: reports: No Symptoms Cardiovascular: reports: No Symptoms Respiratory: reports: No Symptoms Gastrointestinal: reports: No Symptoms Genitourinary: reports: No Symptoms Musculoskeletal: reports: Muscle Cramps Neurological: reports: No Symptoms Physical Exam Vital Signs: Vital Signs Temperature 98.8 F 07/11/19 22:00 Pulse Rate 104 H 07/11/19 22:00 Respiratory Rate 18 07/11/19 22:00 Blood Pressure 112/72 07/11/19 22:00 O2 Sat by Pulse Oximetry (%) 100 07/10/19 22:15 Constitutional: Yes: Calm Eyes: Yes: EOM Intact HENT: Yes: Normocephalic Neck: Yes: Trachea Midline Cardiovascular: Yes: Regular Rate and Rhythm Respiratory: Yes: CTA Bilaterally Gastrointestinal: Yes: Normal Bowel Sounds ...Rectal Exam: Yes: Deferred Musculoskeletal: Yes: WNL Extremities: Yes: WNL Neurological: Yes: Alert, Oriented Labs: CBC, BMP 07/11/19 09:59 07/10/19 18:00 Problem List - Problems (1) Gestational diabetes requiring insulin Problems reviewed: Yes Code(s): O24.414 - GESTATIONAL DIABETES IN , INSULIN CONTROLLED (2) Status post repeat low transverse section Problems reviewed: Yes Code(s): Z98.891 - HISTORY OF UTERINE SCAR FROM PREVIOUS SURGERY (3) Anemia-delivered w/ complication Problems reviewed: Yes Code(s): O99.03 - ANEMIA COMPLICATING THE PUERPERIUM Assessment/Plan Current Active Problems 36 weeks gestation of (Acute) Gestational diabetes requiring insulin (Acute) Status post repeat low transverse section (Acute) Twin gestation with third (Acute) Abnormal Lab Results 07/11/19 09:59 WBC 11.1 H MCV 78.6 L MCH 25.6 L Laboratory Results - last 24 hr 07/10/19 07/11/19 07/11/19 18:00 05:45 09:59 WBC 11.1 H RBC 4.71 Hgb 12.0 Hct 37.0 MCV 78.6 L MCH 25.6 L MCHC 32.5 RDW 15.3 Plt Count 138 MPV 10.4 POC Glucometer 107 Fasting Glucose RPR Titer Nonreactive 07/11/19 07/11/19 07/11/19 09:59 11:07 15:39 WBC RBC Hgb Hct MCV MCH MCHC RDW Plt Count MPV POC Glucometer 98 78 Fasting Glucose 100 RPR Titer 07/11/19 21:27 WBC RBC Hgb Hct MCV MCH MCHC RDW Plt Count MPV POC Glucometer 81 Fasting Glucose RPR Titer plan bgm acmeal ck hba1c diet to resume will need bgm monitoring follow up with hba1c and nutrition consult
[2019-07-12] MEDS: SIMETHICONE 80 MG TAB.CHEW (FP) PO PRN ×5 (02:49→21:29)
[2019-07-12] MEDS: oxyCODONE HCL 5 MG TABLET PO PRN ×4 (02:49→21:32)
[2019-07-12] MEDS: IBUPROFEN 600 MG TABLET (FP) PO PRN ×3 (02:50→21:29)
[2019-07-12] MEDS: INSULIN SLIDING SCALE (NOVOLOG) 1 VIAL SQ SCH ×3 (06:50→17:14)
[2019-07-12] MEDS ORDERED: INSULIN SLIDING SCALE (NOVOLOG) 1 VIAL SQ SCH (07:00)
--- NOTE | 2019-07-12 07:06 | PN ---
Post Note - Post Date of Delivery: 07/10/19 Post Day: 2 Vital Signs: Vital Signs - 24 hr 07/11/19 07/11/19 07/11/19 08:00 09:00 10:00 Temperature 98.2 F Pulse Rate 81 Respiratory 18 18 18 Rate Blood Pressure 123/72 07/11/19 07/11/19 07/11/19 11:00 12:00 13:00 Temperature Pulse Rate Respiratory 18 18 18 Rate Blood Pressure 07/11/19 07/11/19 07/11/19 14:00 15:00 16:00 Temperature 98.3 F Pulse Rate 84 Respiratory 18 18 18 Rate Blood Pressure 111/70 07/11/19 07/11/19 07/11/19 17:00 18:00 19:00 Temperature 98.5 F Pulse Rate 100 H Respiratory 18 18 18 Rate Blood Pressure 108/61 07/11/19 07/11/19 20:00 22:00 Temperature 98.8 F Pulse Rate 104 H Respiratory 18 18 Rate Blood Pressure 112/72 Labs: Laboratory Results - last 24 hr 07/10/19 07/11/19 07/11/19 18:00 09:59 09:59 WBC 11.1 H RBC 4.71 Hgb 12.0 Hct 37.0 MCV 78.6 L MCH 25.6 L MCHC 32.5 RDW 15.3 Plt Count 138 MPV 10.4 POC Glucometer Fasting Glucose 100 RPR Titer Nonreactive 07/11/19 07/11/19 07/11/19 11:07 15:39 21:27 WBC RBC Hgb Hct MCV MCH MCHC RDW Plt Count MPV POC Glucometer 98 78 81 Fasting Glucose RPR Titer 07/12/19 06:25 WBC RBC Hgb Hct MCV MCH MCHC RDW Plt Count MPV POC Glucometer 84 Fasting Glucose RPR Titer - Subjective Subjective: No Complaints - Objective Afebrile: Yes Breast: Not engorged Abdomen: Soft, Non-tender Uterus: Fundus firm Vagina: Scant lochia Extremities: Non-tender - Assessment/Plan (1) Gestational diabetes requiring insulin Assessment: Other (POD2 SP Repeat cs SP twin gestation) Plan: Routine Care ( OOB Continue present management)
[2019-07-12] MEDS: ACETAMINOPHEN 325 MG TABLET (FP) PO PRN (08:06)
--- NOTE | 2019-07-12 21:42 | PN ---
Progress Note, Physician Chief Complaint: comfortable improved appetite - Current Medication List Current Medications: Active Medications Acetaminophen (Tylenol -) 650 mg PO Q4H PRN PRN Reason: FEVER Last Admin: 07/12/19 08:06 Dose: 650 mg Benzocaine (Americaine 20% [place] -) 1 spray TP PRN PRN PRN Reason: Pain - Topical Benzocaine (Americaine Ointment -) 1 applic CA PRN PRN PRN Reason: Pain - Topical Last Admin: 07/12/19 17:21 Dose: 1 tube Bisacodyl (Dulcolax Suppository -) 10 mg CA PRN PRN PRN Reason: CONSTIPATION Diphenhydramine HCl (Benadryl -) 25 mg PO Q6H PRN PRN Reason: FOR ITCHING Last Admin: 07/11/19 17:24 Dose: 25 mg Oxytocin/Sodium Chloride (Normal Saline+20 Units Oxytocin -) 20 unit in 1,000 mls @ 125 mls/hr IV ASDIR ALDEN Last Admin: 07/11/19 15:05 Dose: 125 mls/hr Ibuprofen (Caldolor Injection -) 800 mg IVPB Q6H PRN PRN Reason: Fever - If PO not effective. Last Admin: 07/11/19 11:26 Dose: 800 mg Ibuprofen (Motrin -) 600 mg PO Q4H PRN PRN Reason: PAIN LEVEL 1 - 3 Last Admin: 07/12/19 21:29 Dose: 600 mg Insulin Aspart (Novolog Vial Sliding Scale -) [facility] Last Admin: 07/12/19 17:14 Dose: Not Given Methylergonovine Maleate (Methergine Injection -) 0.2 mg IM Q4H PRN PRN Reason: EXCESSIVE BLEEDING Ondansetron HCl (Zofran Injection) 4 mg IVPUSH Q4H PRN PRN Reason: NAUSEA Oxycodone HCl (Roxicodone -) 5 mg PO Q4H PRN PRN Reason: PAIN LEVEL 1-5 Last Admin: 07/12/19 21:32 Dose: 5 mg Oxycodone HCl (Roxicodone -) 10 mg PO Q4H PRN PRN Reason: PAIN LEVEL 6-10 Last Admin: 07/12/19 17:15 Dose: 10 mg Senna/Docusate Sodium (Pericolace -) 2 tablet PO HS PRN PRN Reason: CONSTIPATION Last Admin: 07/12/19 21:33 Dose: 2 tablet Simethicone (Mylicon -) 80 mg PO Q4H PRN PRN Reason: GAS Last Admin: 07/12/19 21:29 Dose: 80 mg Witch Nelida/Glycerin (Tucks Pads -) 1 pad TP PRN PRN PRN Reason: Pain - Topical Last Admin: 07/12/19 17:20 Dose: 1 canister - Objective Vital Signs: Vital Signs Temperature 98.2 F 07/12/19 14:00 Pulse Rate 100 H 07/12/19 14:00 Respiratory Rate 18 07/12/19 14:00 Blood Pressure 124/67 07/12/19 14:00 O2 Sat by Pulse Oximetry (%) 100 07/10/19 22:15 Constitutional: Yes: Calm Eyes: Yes: EOM Intact HENT: Yes: Normocephalic Neck: Yes: Trachea Midline Cardiovascular: Yes: Regular Rate and Rhythm Respiratory: Yes: CTA Bilaterally Gastrointestinal: Yes: Normal Bowel Sounds ...Rectal Exam: Yes: Deferred Musculoskeletal: Yes: WNL Extremities: Yes: WNL Labs: CBC, BMP 07/11/19 09:59 07/10/19 18:00 INR, PTT INR 1.00 (0.83-1.09) 07/10/19 18:00 Problem List - Problems (1) Gestational diabetes requiring insulin Problems reviewed: Yes Code(s): O24.414 - GESTATIONAL DIABETES IN , INSULIN CONTROLLED (2) Status post repeat low transverse section Problems reviewed: Yes Code(s): Z98.891 - HISTORY OF UTERINE SCAR FROM PREVIOUS SURGERY (3) Anemia-delivered w/ complication Problems reviewed: Yes Code(s): O99.03 - ANEMIA COMPLICATING THE PUERPERIUM Assessment/Plan Current Active Problems 36 weeks gestation of (Acute) Gestational diabetes requiring insulin (Acute) Status post repeat low transverse section (Acute) Twin gestation with third (Acute) Laboratory Results - last 24 hr 07/11/19 07/12/19 07/12/19 21:27 06:25 07:30 POC Glucometer 81 84 Hemoglobin A1c % 6.2 07/12/19 07/12/19 11:18 16:51 POC Glucometer 131 79 Hemoglobin A1c % plan; continue bgm monitoring no need for medication as fbg stable follow outpatient for further need further intervention for type 2dm
[2019-07-12] MEDS ORDERED: SENNOSIDES/DOCUSATE COMBO (SENNA PLUS) TABLET (UD) PO PRN (22:00)
[2019-07-13] MEDS: IBUPROFEN 600 MG TABLET (FP) PO PRN ×3 (03:37→15:29)
[2019-07-13] MEDS: SIMETHICONE 80 MG TAB.CHEW (FP) PO PRN ×4 (03:37→20:14)
[2019-07-13] MEDS: oxyCODONE HCL 5 MG TABLET PO PRN ×4 (03:38→20:14)
[2019-07-13] MEDS: INSULIN SLIDING SCALE (NOVOLOG) 1 VIAL SQ SCH ×3 (06:30→17:08)
[2019-07-13 07:52] LABS: HEMATOCRIT 34.4 % (32.4-45.2); HEMOGLOBIN 11.4 GM/dL (10.7-15.3); MCH 25.9 pg (25.7-33.7); MEAN CELL VOLUME 78.5 fl (80-96); MEAN PLT VOLUME 9.5 fl (7.5-11.1); PLATELET COUNT 169 K/MM3 (134-434); RBC 4.38 M/mm3 (3.60-5.2); RDW 15.7 % (11.6-15.6)
[2019-07-13] MEDS: ACETAMINOPHEN 325 MG TABLET (FP) PO PRN (20:14)
[2019-07-14] MEDS: oxyCODONE HCL 5 MG TABLET PO PRN (02:28)
[2019-07-14] MEDS: ACETAMINOPHEN 325 MG TABLET (FP) PO PRN ×2 (02:28→06:39)
[2019-07-14] MEDS: SIMETHICONE 80 MG TAB.CHEW (FP) PO PRN ×2 (02:29→06:39)
--- NOTE | 2019-07-14 05:40 | DS ---
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 Vital Signs: Vital Signs Temperature 98.3 F 07/13/19 22:00 Pulse Rate 85 07/13/19 22:00 Respiratory Rate 20 07/13/19 22:00 Blood Pressure 133/70 07/13/19 22:00 O2 Sat by Pulse Oximetry (%) 100 07/10/19 22:15 Constitutional: Yes: Well Nourished Cardiovascular: Yes: WNL Gastrointestinal: Yes: WNL, Soft Labs: CBC, BMP 07/13/19 07:25 07/10/19 18:00 Delivery - Delivery Type of Anesthesia: Spinal EBL (cc): 700 Delivery, Single - Stages of Labor Date of Delivery: 07/10/19 - [place] Feeding Plan Initial Plan: Exclusive throughout hospitalization Delivery, Multiple Births - Stages of Labor Delivery Baby "A" Date: 07/10/19 Time: 20:25 Placenta/Membranes "A" Date: 07/10/19 Time: 20:29 Delivery Baby "B" Date: 07/10/19 Time: 20:26 Placenta/Membranes "B" Date: 07/10/19 Time: 20:29 - Condition of Multiple Births 1 (A) Insulator Cutter And Former/Wound Care Specialist Present: Yes Insulator Cutter And Former: Mark Mendez Gender: Female Weight: 5 lb 13 oz Position: OP Total Hours ROM (HRS/MINS): 4 minutes [place] 2 (B) Insulator Cutter And Former/Wound Care Specialist Present: Yes Insulator Cutter And Former: Mark Mendez Infant Gender: Male Weight: 5 lb 3 oz Position: OP Total Hours ROM (HRS/MINS): 3 minutes - [place] 1 (A) 1 Minute Score: 9 [place] 1 (A) 5 Minutes Score: 9 2 (B) 1 Minute Score: 9 [place] 2 (B) 5 Minutes Score: 9 Discharge Summary Problems reviewed: Yes Reason For Visit: CSECTION Current Active Problems 36 weeks gestation of (Acute) Gestational diabetes requiring insulin (Acute) Status post repeat low transverse section (Acute) Twin gestation with third (Acute) Procedures: Principal: Repeat [facility] Course: Stable Condition: Good - Instructions Diet, Activity, Other Instructions: Physical activity Resume your normal everyday activity as tolerated no heavy lifting or exercise until seen by your surgeon. You may walk unlimited mary of and climb stairs. You may resume driving the car when you feel safe and comfortable behind the wheel. No sexual activity as instructed. Wound care If you have a bandage, leave it on, and keep dry for 48-72 hours. After that time discard the outer bandage. If they are tapes on the skin under the out of bandage leave them in place. They will peel off in the next 7 to 10 days. Do Not Peel them off. You may shower the day after surgery. If there are tapes present on the skin, you may shower over them. Diet There are no dietary restrictions. Eat healthy, high-fiber foods. Drink 6 to 8 glasses of liquid each day. This will assist in keeping your bowels are regular. Pain management You may take Tylenol or acetaminophen or Ibuprofen (for example, Motrin, Advil etc.) from my pain prescription medication is ordered should be taken as prescribed for moderate to severe pain. Call MD for any of the following: Severe pain not relieved by medication Fever of 101 or higher Excessive bleeding or drainage on dressing Inability to urinate Referrals: Mallory Zelaya MD [Staff Physician] - Disposition: HOME - Home Medications Comprehensive Discharge Medication List: Ambulatory Orders Aspirin [Lo-Dose Aspirin EC] 81 mg PO DAILY 06/29/19 Vits96/Iron Fum/Folic [ Tablet] 1 each PO DAILY 06/29/19 Insulin NPH [Novolin N Vial -] 22 units SQ AM 07/10/19
[2019-07-14] MEDS: INSULIN SLIDING SCALE (NOVOLOG) 1 VIAL SQ SCH ×2 (06:26→11:46)
[2019-07-14] MEDS: IBUPROFEN 600 MG TABLET (FP) PO PRN (06:40)
[2019-07-14 17:04] VITALS: BP 122/76; PULSE 76; TEMP 98
--- NOTE | 2019-07-17 17:06 | PATH ---
Surgical Pathology Report Patient Name: ELVIN PATTON Med. Rec. #: [id number] /Age/Gender: 1995 (Age: 23) / F Account: [id number] Location: [facility] OBS/RESPIRATORY THERAPY DIRECTOR Taken: 07/10/2019 Received: 07/11/2019 Reported: 07/17/2019 Physicians: Mallory Zelaya M.D. Specimen(s) Received PLACENTA Clinical History , 36.1 weeks' gestation, 02/02 Twin gestation, insulin dependent gestational diabetes-not controlled 2016-[facility] Final Diagnosis PLACENTA: DIAMNIOTIC, DICHORIONIC, TWIN, THIRD TRIMESTER PLACENTA. PLACENTA "A" SHOWS A THREE-VESSELS CORD AND MEMBRANES WITH NO DIAGNOSTIC ABNORMALITIES. PLACENTA "B" SHOWS A THREE-VESSELS CORD AND MEMBRANES WITH NO DIAGNOSTIC ABNORMALITIES. Electronically Signed Latasha Barnes M.D. Gross Description Received in formalin labeled "placenta," is a twin placenta comprised of 2 separate discs, joined by dividing membranes. The dividing membranes are jennings and opaque. There is one clamp marking the umbilical cord of arbitrarily designated placenta "A" and two clips marking the umbilical cord arbitrarily designated placenta "B". Placenta "A" is 427 g and measures 15.0 x 14.0 x 2.4 cm. The attached membranes are jennings, translucent with focal opacities and insert marginally. The umbilical cord measures 15 cm in length and averages 1.1 cm in diameter. The cord inserts eccentrically, 3 cm to the nearest margin. No true knots or strictures are identified. Cut surface of the umbilical cord reveals 3 vessels. The surface is acevedo blue with minimal fibrin deposition and appropriate caliber vessels. The maternal surface is red-brown with focal defects. Sectioning reveals red-brown, spongy parenchyma. No lesions are identified. Placenta "B" is 343 g and measures 14.0 x 13.0 x 2.2 cm. The attached membranes are jennings, translucent with focal opacities and insert marginally. The umbilical cord measures 8 cm in length and averages 1.1 cm in diameter. The cord inserts eccentrically, 4 cm to the nearest margin. No true knots or strictures are identified. Cut surface of the umbilical cord reveals 3 vessels. The surface is acevedo blue with minimal fibrin deposition and appropriate caliber vessels. The maternal surface is red-brown with focal defects. Sectioning reveals red-brown, spongy parenchyma. No lesions are identified. Sterile Process Coordinator sections are submitted in 7 cassettes as follows: 1-placenta "A" membrane rolls and umbilical cord; 2-3-full thickness sections of placenta "A"; 4-dividing membranes; 5-placenta "B" membrane roll and umbilical cord; 6-7-full thickness sections of placenta "B". 07/13/2019 [facility]07/13/2019
== END 2019-07-14 12:41 | disposition home or self-care (01) | DRG 540 ==
LOC: JLDR 16:20 → J3W 23:25
PROVIDERS: ADMIT Obstetrics & Gynecology; ATTEND Obstetrics & Gynecology
PROC: 10D00Z1 Extraction of Products of Conception, Low, Open Approach (ICD-10-PCS; principal; 2019-07-10)
DX: O30.043 Twin pregnancy, dichorionic/diamniotic, third trimester (principal); O24.424 Gestational diabetes mellitus in childbirth, insulin controlled; O69.81X1 Labor and delivery complicated by cord around neck, without compression, fetus 1; O34.211 Maternal care for low transverse scar from previous cesarean delivery; Z37.2 Twins, both liveborn; O99.02 Anemia complicating childbirth; D64.9 Anemia, unspecified; Z3A.36 36 weeks gestation of pregnancy; Z79.4 Long term (current) use of insulin
CPT/HCPCS: 36415; 36600; 80048; 82803; 82947; 82962; 83036; 85025; 85027; 85610; 85730; 86593; 86850; 86900; 86901; 88307-TC; J0131

== ENCOUNTER 2021-01-14 12:20 | Emergency (ER) | payer OTHER ==
[2021-01-14 12:35] VITALS: BP 142/75; PULSE 75; TEMP 98.2; BMI 38.7
[2021-01-14] MEDS ORDERED: DEXAMETHASONE LIQUID 0.5 MG/5 ML PO ONE (13:07)
[2021-01-14] MEDS ORDERED: IBUPROFEN 600 MG TABLET (FP) PO ONE ×2 (13:07→13:57)
[2021-01-14] MEDS ORDERED: DEXAMETHASONE SOD PHOSPHATE 10 MG/1 ML VIAL ONE (13:57)
== END 2021-01-14 15:17 | disposition home or self-care (01) ==
LOC: JER 12:20
DX: J02.0 Streptococcal pharyngitis (principal)
CPT/HCPCS: 87880; 99282-25; C9803; U0003; U0005

== ENCOUNTER 2021-03-14 08:55 | Emergency (ER) | payer OTHER ==
[2021-03-14 09:24] VITALS: BP 139/71; PULSE 81; TEMP 98.3; BMI 39.0
== END 2021-03-14 10:00 | disposition home or self-care (01) ==
LOC: JER 08:55
DX: J02.9 Acute pharyngitis, unspecified (principal); Z11.52 Encounter for screening for COVID-19
CPT/HCPCS: 87880; 99283-25; C9803; U0003; U0005

== ENCOUNTER 2021-10-01 17:07 | Emergency (ER) | payer OTHER ==
[2021-10-01] MEDS ORDERED: KETOROLAC TROMETHAMINE 30 MG/1 ML VIAL IVPUSH ONE (18:16)
[2021-10-01] MEDS ORDERED: DEXAMETHASONE SOD PHOSPHATE 10 MG/1 ML VIAL IVPUSH ONE (18:16)
[2021-10-01] MEDS ORDERED: SODIUM CHLORIDE 0.9% 500 ML INFUS.BAG IV ONE (18:16)
[2021-10-01 18:20] VITALS: BMI 38.7
[2021-10-01] MEDS ORDERED: DEXAMETHASONE SOD PHOSPHATE 10 MG/1 ML VIAL ONE (18:45)
[2021-10-01] MEDS ORDERED: KETOROLAC TROMETHAMINE 30 MG/1 ML VIAL ONE (18:45)
[2021-10-01 20:12] VITALS: BP 119/46; PULSE 101; TEMP 100
[2021-10-01] MEDS ORDERED: PENICILLIN G BENZATHINE 1,200,000 UNIT/2 ML PFS IM ONE ×2 (21:28→21:31)
== END 2021-10-01 23:19 | disposition home or self-care (01) ==
LOC: JER 17:07
PROC: 3E033GC Introduction of Other Therapeutic Substance into Peripheral Vein, Percutaneous Approach (ICD-10-PCS; principal; 2021-10-01)
PROC: 3E0333Z Introduction of Anti-inflammatory into Peripheral Vein, Percutaneous Approach (ICD-10-PCS; 2021-10-01)
PROC: 3E02329 Introduction of Other Anti-infective into Muscle, Percutaneous Approach (ICD-10-PCS; 2021-10-01)
DX: J02.0 Streptococcal pharyngitis (principal)
CPT/HCPCS: 87651; 99284-25; J1100

== ENCOUNTER 2022-04-12 14:40 | Emergency (ER) | payer OTHER ==
[2022-04-12 14:52] VITALS: BP 125/83; PULSE 93; RESP 18; TEMP 98.6; BMI 40.3
[2022-04-12 16:04] LABS: THROAT:GRP A STREP DETECTED (NOTDETECTED)
[2022-04-12 16:31] LABS: SARS COV-2 MOLECULAR IN-HOUSE NEGATIVE (NEGATIVE)
== END 2022-04-12 15:43 | disposition home or self-care (01) ==
LOC: JER 14:40
DX: J02.0 Streptococcal pharyngitis (principal)
CPT/HCPCS: 87651; 99283-25; C9803-CS; U0003; U0005

== ENCOUNTER 2022-07-15 16:12 | Emergency (ER) | payer OTHER ==
[2022-07-15 16:29] VITALS: BP 128/78; PULSE 90; RESP 19; TEMP 98.3; BMI 42.5
[2022-07-15] MEDS ORDERED: KETOROLAC TROMETHAMINE 60 MG/2 ML VIAL IM ONE (18:26)
[2022-07-15] MEDS ORDERED: METHOCARBAMOL 500 MG TABLET PO ONE (18:26)
[2022-07-15] MEDS ORDERED: ACETAMINOPHEN 325 MG TABLET (FP) PO ONE (18:26)
[2022-07-15] MEDS ORDERED: LIDOCAINE 5% TOPICAL PATCH TP ONE (18:26)
[2022-07-15] MEDS ORDERED: METHOCARBAMOL 500 MG TABLET ONE (19:04)
[2022-07-15] MEDS ORDERED: ACETAMINOPHEN 500 MG TABLET (FP) ONE (19:04)
[2022-07-15] MEDS ORDERED: LIDOCAINE 5% TOPICAL PATCH ONE (19:04)
[2022-07-15] MEDS ORDERED: KETOROLAC TROMETHAMINE 30 MG/1 ML VIAL ONE (19:04)
[2022-07-16] MEDS ORDERED: LIDOCAINE PATCH REMOVAL MC SCH (06:30)
== END 2022-07-15 20:35 | disposition home or self-care (01) ==
LOC: JERFT 16:12
PROC: 3E023GC Introduction of Other Therapeutic Substance into Muscle, Percutaneous Approach (ICD-10-PCS; principal; 2022-07-15)
DX: S30.0XXA Contusion of lower back and pelvis, initial encounter (principal); W10.8XXA Fall (on) (from) other stairs and steps, initial encounter
CPT/HCPCS: 72100-TC-FY; 99284-25

== ENCOUNTER 2022-11-04 09:49 | Emergency (ER) | payer OTHER ==
[2022-11-04 09:53] VITALS: BP 142/75; PULSE 91; RESP 20; TEMP 98.3; BMI 42.3
[2022-11-04 12:36] LABS: THROAT:GRP A STREP DETECTED (NOTDETECTED)
== END 2022-11-04 11:57 | disposition home or self-care (01) ==
LOC: JERFT 09:49
DX: J03.80 Acute tonsillitis due to other specified organisms (principal)
CPT/HCPCS: 0241U-QW; 87651; 99283-25

== ENCOUNTER 2023-02-18 10:20 | Emergency (ER) | payer OTHER ==
[2023-02-18 10:34] VITALS: BP 126/77; PULSE 82; RESP 18; TEMP 98.2; BMI 35.8
== END 2023-02-18 11:12 | disposition home or self-care (01) ==
LOC: JERFT 10:20
DX: J01.90 Acute sinusitis, unspecified (principal); R09.81 Nasal congestion
CPT/HCPCS: 99282-25

== ENCOUNTER 2023-05-29 09:06 | Emergency (ER) | payer OTHER ==
[2023-05-29 09:21] VITALS: BP 119/71; PULSE 63; RESP 16; TEMP 98.7; BMI 30.8
[2023-05-29] MEDS ORDERED: KETOROLAC TROMETHAMINE 30 MG/1 ML VIAL IM ONE (10:03)
[2023-05-29] MEDS ORDERED: ACETAMINOPHEN 500 MG TABLET (FP) PO ONE (10:03)
[2023-05-29] MEDS ORDERED: LIDOCAINE 5% TOPICAL PATCH TP ONE (10:05)
[2023-05-29] MEDS ORDERED: LIDOCAINE 5% TOPICAL PATCH ONE (10:24)
== END 2023-05-29 10:31 | disposition home or self-care (01) ==
LOC: JERFT 09:06
PROC: 3E0233Z Introduction of Anti-inflammatory into Muscle, Percutaneous Approach (ICD-10-PCS; principal; 2023-05-29)
DX: M54.6 Pain in thoracic spine (principal); M54.2 Cervicalgia; M54.50 Low back pain, unspecified
CPT/HCPCS: 99284-25

== ENCOUNTER 2024-02-14 13:30 | Emergency (ER) | payer OTHER ==
[2024-02-14 13:44] VITALS: RESP 18; TEMP 98; BMI 26.6
[2024-02-14] MEDS ORDERED: MAG HYDROX/AL HYDROX/SIMETH 30 ML UNIT-DOSE CUP ONE (15:38)
[2024-02-14] MEDS ORDERED: ACETAMINOPHEN INJECTION 100 ML IVPB ONE (15:38)
[2024-02-14] MEDS ORDERED: FAMOTIDINE 20 MG/50 ML IVPB 20 MG/50 ML MG IVPB ONE (15:38)
[2024-02-14 15:41] LABS: BASO % 0.4 % (0-2.0); EOS % 1.7 % (0-4.5); HEMATOCRIT 33.7 % (32.4-45.2); HEMOGLOBIN 10.9 GM/dL (10.7-15.3); LYMPH % 29.3 % (8-40); MCHC 32.4 g/dl (32.0-36.0); MEAN CELL VOLUME 77.2 fl (80-96); MEAN PLT VOLUME 9.1 fl (7.5-11.1); MONO % 6.8 % (3.8-10.2); NEUT % 61.8 % (42.8-82.8); PLATELET COUNT 261 10^3/uL (134-434); RBC 4.36 M/mm3 (3.60-5.2); RDW 15.7 % (11.6-15.6); WHITE BLOOD COUNT 9.9 K/mm3 (4.0-10.0)
[2024-02-14] MEDS: MAG HYDROX/AL HYDROX/SIMETH 30 ML UNIT-DOSE CUP PO ONE (15:47)
[2024-02-14] MEDS: ACETAMINOPHEN 1000 MG/100 ML BAG IVPB ONE (15:47)
[2024-02-14] MEDS: FAMOTIDINE 20 MG/50 ML IVPB 20 MG/50 ML MG IVPB ONE (15:48)
[2024-02-14] MEDS: LACTATED RINGERS SOLUTION 1,000 ML/1,000 ML INFUS.BAG IV SCH (15:48)
[2024-02-14 15:57] LABS: POTASSIUM 3.3 mmol/L (3.5-5.1)
[2024-02-14 15:59] LABS: CALCIUM 9.1 mg/dL (8.5-10.1)
[2024-02-14 16:00] LABS: ALBUMIN 3.6 g/dl (3.4-5.0); BLOOD UREA NITROGEN 11.8 mg/dL (7-18)
[2024-02-14 16:03] LABS: CREATININE 0.8 mg/dL (0.55-1.3)
[2024-02-14 16:04] LABS: BILIRUBIN,TOTAL 0.3 mg/dL (0.2-1)
[2024-02-14 19:32] VITALS: BP 112/83; PULSE 76
== END 2024-02-14 19:32 | disposition home or self-care (01) ==
LOC: JER 13:30
PROC: 3E033GC Introduction of Other Therapeutic Substance into Peripheral Vein, Percutaneous Approach (ICD-10-PCS; principal; 2024-02-14)
PROC: 3E033NZ Introduction of Analgesics, Hypnotics, Sedatives into Peripheral Vein, Percutaneous Approach (ICD-10-PCS; 2024-02-14)
DX: R10.13 Epigastric pain (principal)
CPT/HCPCS: 36415; 74177-TC; 76830-TC; 80053; 83605; 83690; 84702; 84703; 85025; 99285-25; J0131; Q9967

== ENCOUNTER 2024-10-17 07:35 | Emergency (ER) | payer OTHER ==
[2024-10-17 07:48] VITALS: BP 118/52; PULSE 54; RESP 18; TEMP 97.8; BMI 25.8
[2024-10-17] MEDS ORDERED: ACETAMINOPHEN INJECTION 100 ML ONE (09:17)
[2024-10-17 09:21] LABS: BASO % 0.5 % (0-2.0); EOS % 1.5 % (0-4.5); HEMATOCRIT 32.2 % (32.4-45.2); HEMOGLOBIN 9.8 GM/dL (10.7-15.3); LYMPH % 19.3 % (8-40); MCH 21.1 pg (25.7-33.7); MCHC 30.3 g/dl (32.0-36.0); MEAN CELL VOLUME 69.7 fl (80-96); NEUT % 72.7 % (42.8-82.8); PLATELET COUNT 316 10^3/uL (134-434); RBC 4.62 M/mm3 (3.60-5.2); RDW 17.1 % (11.6-15.6); WHITE BLOOD COUNT 10.2 K/mm3 (4.0-10.0)
[2024-10-17 09:42] LABS: POTASSIUM 3.2 mmol/L (3.5-5.1)
[2024-10-17 09:45] LABS: ALBUMIN 3.8 g/dl (3.4-5.0); BLOOD UREA NITROGEN 8.8 mg/dL (7-18)
[2024-10-17 09:48] LABS: CREATININE 0.8 mg/dL (0.55-1.3)
[2024-10-17 09:49] LABS: BILIRUBIN,TOTAL 0.4 mg/dL (0.2-1); INR 1.09 (0.83-1.09); TOT PROT 7.5 g/dl (6.4-8.2)
[2024-10-17] MEDS: SODIUM CHLORIDE 1,000 ML IV STA (09:49)
[2024-10-17] MEDS: ACETAMINOPHEN 1000 MG/100 ML BAG IVPB ONE (09:49)
[2024-10-17 09:52] LABS: ACTIVATED PTT 33.2 SECONDS (25.2-36.5)
[2024-10-17 10:12] LABS: EPI CELLS 9 /uL (0-25.1); HYALINE CASTS 1 /uL (0-3.1); URINE APPEARANCE CLEAR; URINE BACTERIA 3 /uL (0-1359); URINE BILIRUBIN NEGATIVE (NEGATIVE); URINE COLOR YELLOW; URINE GLUCOSE (UA) NEGATIVE (NEGATIVE); URINE KETONE TRACE (NEGATIVE); URINE LEUK ESTERASE NEGATIVE (NEGATIVE); URINE NITRITE NEGATIVE (NEGATIVE); URINE PROTEIN NEGATIVE (NEGATIVE); URINE RBC 31 /uL (0-23.9); URINE WBC 8 /uL (0-25.8)
[2024-10-17 10:24] LABS: HCG,QUALITATIVE URINE Negative
[2024-10-17 11:20] LABS: ANISOCYTOSIS 1+; MACROCYTOSIS 0
[2024-10-17] MEDS: POTASSIUM CHLORIDE ORAL LIQUID 20 MEQ/15 ML PO ONE (11:36)
[2024-10-17] MEDS ORDERED: POTASSIUM CHLORIDE ORAL LIQUID 20 MEQ/15 ML ONE (11:36)
[2024-10-17 12:37] LABS: HIV INTERPRETATION NEGATIVE (NEGATIVE)
== END 2024-10-17 11:47 | disposition home or self-care (01) ==
LOC: JER 07:35
PROC: 3E033NZ Introduction of Analgesics, Hypnotics, Sedatives into Peripheral Vein, Percutaneous Approach (ICD-10-PCS; principal; 2024-10-17)
PROC: 3E0337Z Introduction of Electrolytic and Water Balance Substance into Peripheral Vein, Percutaneous Approach (ICD-10-PCS; 2024-10-17)
DX: R42 Dizziness and giddiness (principal); R00.1 Bradycardia, unspecified
CPT/HCPCS: 0241U-QW; 36415; 80053; 81003; 84703; 85025; 85610; 85730; 86803; 86850; 86900; 86901; 87086; 87389; 93005; 93010; 99284-25; J0131

== ENCOUNTER 2024-11-16 06:49 | Day surgery (SDC) | payer OTHER ==
[~2024-11-16 06:49] MED LIST: ACETAMINOPHEN 1000 MG/100 ML BAG IVPB ONE; CEFAZOLIN 1 GM/D5W 1 GM/50 ML BAG IVPB ONE; PHENAZOPYRIDINE HCL 100 MG TABLET (FP) PO ONE; TRANEXAMIC ACID 1000 MG/10 ML VIAL IVPUSH ONE
[2024-11-16] MEDS: PHENAZOPYRIDINE HCL 100 MG TABLET (FP) PO ONE (06:50)
[2024-11-16] MEDS ORDERED: PHENAZOPYRIDINE HCL 100 MG TABLET (FP) ONE (06:54)
[2024-11-16] MEDS ORDERED: PROPOFOL 20 ML ONE (06:57)
[2024-11-16] MEDS ORDERED: MIDAZOLAM HCL 2 MG/2 ML SINGLE DOSE VIAL ONE (06:58)
[2024-11-16] MEDS ORDERED: ROCURONIUM BROMIDE 50 MG/5 ML SYRINGE ONE ×2 (06:58→08:11)
[2024-11-16] MEDS ORDERED: ONDANSETRON 4 MG/2 ML VIAL IVPUSH PRN ×2 (07:17→10:05)
[2024-11-16] MEDS ORDERED: oxyCODONE HCL 5 MG TABLET PO PRN ×3 (07:17→10:05)
[2024-11-16] MEDS: ceFAZolin 2 GRAM PREMIX BAG IVPB ONE (07:51)
[2024-11-16] MEDS ORDERED: ONDANSETRON 4 MG/2 ML VIAL ONE (07:55)
[2024-11-16] MEDS ORDERED: KETOROLAC TROMETHAMINE 30 MG/1 ML VIAL ONE (07:55)
[2024-11-16] MEDS ORDERED: HYDROmorphone HCl 2 MG/ML VIAL ONE (07:55)
[2024-11-16] MEDS ORDERED: ceFAZolin SODIUM 1 GM VIAL ONE ×2 (07:55)
[2024-11-16] MEDS ORDERED: DEXAMETHASONE SOD PHOSPHATE 4 MG/1 ML VIAL ONE (07:55)
[2024-11-16] MEDS ORDERED: ACETAMINOPHEN INJECTION 100 ML ONE (08:14)
[2024-11-16] MEDS ORDERED: SUGAMMADEX SODIUM 200 MG/2 ML VIAL ONE (09:13)
[2024-11-16] MEDS ORDERED: BISACODYL 5 MG TABLET.DR (FP) PO PRN (10:05)
[2024-11-16] MEDS ORDERED: SIMETHICONE 80 MG TAB.CHEW (FP) PO PRN (10:05)
[2024-11-16] MEDS ORDERED: DOCUSATE SODIUM 100 MG CAPSULE (FP) PO PRN (10:05)
[2024-11-16] MEDS: LACTATED RINGERS SOLUTION 1,000 ML IV SCH (12:19)
[2024-11-16 13:20] VITALS: RESP 18
[2024-11-16] MEDS: oxyCODONE HCL 5 MG TABLET PO PRN (14:17)
[2024-11-16] MEDS ORDERED: LORATADINE 10 MG TABLET PO PRN (15:30)
[2024-11-16] MEDS: CEFAZOLIN 1 GM/D5W 1 GM/50 ML BAG IVPB SCH (15:32)
[2024-11-16] MEDS: ACETAMINOPHEN 1000 MG/100 ML BAG IVPB SCH (16:13)
[2024-11-16] MEDS ORDERED: CEFAZOLIN 1 GM/D5W 1 GM/50 ML BAG IVPB SCH (17:22)
[2024-11-16] MEDS: IBUPROFEN 800 MG/8 ML IJ IVPB SCH (17:38)
[2024-11-16 18:34] LABS: HEMATOCRIT 28.2 % (32.4-45.2); HEMOGLOBIN 8.8 GM/dL (10.7-15.3); MCHC 31.2 g/dl (32.0-36.0); MEAN CELL VOLUME 67.4 fl (80-96); MEAN PLT VOLUME 8.6 fl (7.5-11.1); PLATELET COUNT 312 10^3/uL (134-434); RBC 4.18 M/mm3 (3.60-5.2); RDW 17.4 % (11.6-15.6); WHITE BLOOD COUNT 8.9 K/mm3 (4.0-10.0)
[2024-11-16 18:59] LABS: CALCIUM 8.5 mg/dL (8.5-10.1)
[2024-11-16 19:03] LABS: CREATININE 0.8 mg/dL (0.55-1.3)
[2024-11-17] MEDS: CEFAZOLIN 1 GM/D5W 1 GM/50 ML BAG IVPB SCH (00:01)
[2024-11-17 08:46] VITALS: TEMP 98.6
[2024-11-17 09:42] LABS: HEMATOCRIT 26.7 % (32.4-45.2); HEMOGLOBIN 8.3 GM/dL (10.7-15.3); MCH 21.4 pg (25.7-33.7); MCHC 31.3 g/dl (32.0-36.0); MEAN CELL VOLUME 68.6 fl (80-96); MEAN PLT VOLUME 8.8 fl (7.5-11.1); PLATELET COUNT 299 10^3/uL (134-434); RBC 3.89 M/mm3 (3.60-5.2); RDW 17.4 % (11.6-15.6); WHITE BLOOD COUNT 10.1 K/mm3 (4.0-10.0)
[2024-11-17 10:00] LABS: POTASSIUM 3.9 mmol/L (3.5-5.1)
[2024-11-17 10:02] LABS: CALCIUM 8.4 mg/dL (8.5-10.1)
[2024-11-17 10:03] LABS: BLOOD UREA NITROGEN 9.2 mg/dL (7-18)
[2024-11-17] MEDS: ENOXAPARIN NA (PORCINE) 40 MG/0.4 ML DISP.SYRIN SQ SCH (10:07)
[2024-11-17 14:02] VITALS: BP 105/63; PULSE 65
[2024-11-17] MEDS: ACETAMINOPHEN 500 MG TABLET (FP) PO SCH (14:27)
[2024-11-17] MEDS ORDERED: IBUPROFEN 600 MG TABLET (FP) PO SCH (16:00)
== END 2024-11-17 16:00 | disposition home or self-care (01) ==
LOC: JASUSAT 06:49 → J6S 12:56 → JASUSAT 11-17 16:00
PROVIDERS: ATTEND Obstetrics & Gynecology
PROC: 0UT9FZZ Resection of Uterus, Via Natural or Artificial Opening With Percutaneous Endoscopic Assistance (ICD-10-PCS; principal; 2024-11-16 07:45)
PROC: 0UT7FZZ Resection of Bilateral Fallopian Tubes, Via Natural or Artificial Opening With Percutaneous Endoscopic Assistance (ICD-10-PCS; 2024-11-16 07:45)
DX: N80.03 Adenomyosis of the uterus (principal); R10.2 Pelvic and perineal pain
CPT/HCPCS: 58571; S2900; 36415; 80048; 81025; 85027; 86850; 86900; 86901; 88305-TC; 88307-TC; 88341-TC; 88342-TC; 94010; 94760; J0131